=== PATIENT | female | born 1945 | race Caucasian/White ===

== ENCOUNTER 2017-04-20 11:23 | Emergency (ER) | payer OTHER ==
[~2017-04-20] VITALS: Ht 165.1 cm; Wt 72.6 kg
[~2017-04-20 11:23] MED LIST: ALBUTEROL2.5 MG/3 M IH; AZITHROMYCIN250 MG PO; CILOSTAZOL100 MG PO; FLOVENT 44120 INHALA IH; HUMULIN R100 UNITS/ SC; METHYLDOPA250 MG PO; NORCO 5/3251 TABLET PO; NOVOLIN N100 UNIT/1 SQ; NOVOLIN N100 UNITS/ SC; PLETAL50 MG PO; PRAVASTATIN SOD20 MG PO; PREDNISOLONE5 MG PO; PREDNISONE20 MG PO; PROAIR HFA8.5 GM IH; ST. JOSEPH ASPI81 MG PO; ZESTRIL,PRINIVIL5 MG PO
[2017-04-20] MEDS ORDERED: TYLENOL WITH C1 EACH PO (14:06)
[2017-04-20 14:29] VITALS: BP 164/86
== END 2017-04-20 14:33 | disposition home or self-care (01) ==
LOC: EME 11:23
DX: S00.03XA Contusion of scalp, initial encounter (principal); S20.212A Contusion of left front wall of thorax, initial encounter; W18.30XA Fall on same level, unspecified, initial encounter; I69.354 Hemiplegia and hemiparesis following cerebral infarction affecting left non-dominant side; E11.9 Type 2 diabetes mellitus without complications; Z79.4 Long term (current) use of insulin; E78.5 Hyperlipidemia, unspecified; I10 Essential (primary) hypertension; J45.909 Unspecified asthma, uncomplicated; Z88.1 Allergy status to other antibiotic agents
CPT/HCPCS: 70450; 71101; 99281; 99284